=== PATIENT | male | born 1995 | race Two or more races ===

== ENCOUNTER 2018-04-05 18:43 | Emergency (ER) | payer SELFPAY ==
[~2018-04-05] VITALS: Ht 175.3 cm; Wt 78.2 kg
[2018-04-05 18:45] VITALS: BP 152/77
== END 2018-04-05 20:13 | disposition home or self-care (01) ==
LOC: ED 20:07
DX: S93.491A Sprain of other ligament of right ankle, initial encounter (principal); X50.1XXA Overexertion from prolonged static or awkward postures, initial encounter; Y93.66 Activity, soccer; Y92.322 Soccer field as the place of occurrence of the external cause; Y99.8 Other external cause status
CPT/HCPCS: 99284